=== PATIENT | female | born 2000 | race Caucasian/White ===

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

== ENCOUNTER 2021-02-20 02:22 | Emergency (ER) | payer BC, SELFPAY ==
[2021-02-20 02:23] VITALS: BP 132/86; PULSE 114; RESP 14; TEMP 36.6; O2SAT 95; BMI 19.1
[2021-02-20 02:26] VITALS: BP 134/74; PULSE 114; RESP 14; TEMP 36.6; O2SAT 96
--- NOTE | 2021-02-20 02:35 | RAD_ITS ---
STUDY: X-RAY - RIGHT KNEE REASON FOR EXAM: Female, 20 years old. 3 weeks status post surgery. Pain after jumping up and down. TECHNIQUE: 2 view(s) of the knee. COMPARISON: None. FINDINGS: No fracture or dislocation. Alignment anatomic. Changes of ACL repair with distal femoral and proximal tibial tunnels, and an anchor along the medial aspect of the distal femur. Large joint effusion. RAD/Knee 1 or 2 Views IMPRESSION: No acute osseous abnormality. Status post ACL repair. Large joint effusion. If clinically necessary, MRI knee without contrast would best assess the integrity of the graft and for other internal drainagement. Electronically Signed: Jenaro Heller MD at 3:32 EDT Tel , Service support ,
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
[2021-02-20 05:03] VITALS: RESP 16
[2021-02-20 07:10] VITALS: BP 114/75; PULSE 76; RESP 12; O2SAT 99
== END 2021-02-20 07:12 | disposition home or self-care (01) ==
LOC: ED 02:57
PROVIDERS: Emergency Provider Emergency Medicine
DX: F10.129 Alcohol abuse with intoxication, unspecified (principal); Z65.3 Problems related to other legal circumstances; Y90.9 Presence of alcohol in blood, level not specified
CPT/HCPCS: 73560; 99285